=== PATIENT | female | born 1975 | race Caucasian/White ===

== ENCOUNTER 2020-01-21 11:47 | Emergency (ER) | payer MEDICAID ==
--- NOTE | 2020-01-21 12:07 | EDM.PDOC ---
ED HPI GENERAL MEDICAL PROBLEM - General Chief Complaint: Lower Extremity Injury/Pain Stated Complaint: R FOOT PAIN/POST SURGERY Time Seen by Provider: 01/21/20 12:07 Source of Information: Reports: Patient History Limitations: Reports: No Limitations - History of Present Illness INITIAL COMMENTS - FREE TEXT/NARRATIVE: 44-year-old female attends the ED this morning due to increased pain in her right medial foot. 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 She has had 7 separate surgeries on her left foot and this is the first surgery on her right foot. This was done December 12 in [place] or [facility]. She is here visiting at present. She states the pain has increased dramatically in the last few days for unknown reason. No purulent drainage from the surgical wounds. She currently does not have any pain medication with her to help control the pain. Onset: Gradual Onset Date: 01/18/20 Duration: Day(s):, Getting Worse Location: Reports: Lower Extremity, Right (Pain right medial foot at site of most recent surgery) Quality: Reports: Ache Severity: Moderate Improves with: Reports: Rest Worsens with: Reports: Movement Context: Reports: Other (Had surgical pinning of bones in her foot due to degenerative disease in her feet. 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 She has had 7 previous surgeries on her left foot.). 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 She has had 7 separate surgeries on her left foot basically to fuse the bones together to stop pain. 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 This was done in [place] or [facility].) Review of Systems - Review of Systems Review Of Systems: See Below Constitutional: Reports: No Symptoms Eyes: Reports: No Symptoms Ears: Reports: No Symptoms Nose: Reports: No Symptoms Mouth/Throat: Reports: No Symptoms Respiratory: Reports: No Symptoms Cardiovascular: Reports: No Symptoms GI/Abdominal: Reports: No Symptoms Genitourinary: Reports: Other (Urinary frequency) Musculoskeletal: Reports: Foot Pain (Knees hips back neck and shoulders at times. Currently having quite a bit of pain in her right foot at most recent surgical site medial foot), Joint Pain Skin: Reports: No Symptoms Neurological: Reports: No Symptoms Psychiatric: Reports: No Symptoms ED EXAM, GENERAL - Physical Exam Exam: See Below Exam Limited By: No Limitations General Appearance: Alert, WD/WN, No Apparent Distress, Other (Temperature is 35.8. Pulse is 97 and sinus respiratory is 19 with O2 sats of 97% room air BP 150/95) Extremities: Other (Examination was limited to her left foot which does not indeed show multiple surgical scars. On the right foot she has a screw puncture wound on the lateral aspect of the distal foot likely through the fifth metatarsal. There is a second surgical wound medial aspect of the midfoot at pin position. The wounds are are healing satisfactorily without any signs of infection.) Neurological: Alert, Oriented ( The surgical site is quite tender to touch.), CN II-XII Intact, Normal Cognition Psychiatric: Normal Affect, Normal Mood Skin Exam: Warm, Dry, Intact, Normal Color, No Rash Course - Vital Signs Last Recorded V/S: Last Vital Signs Temp 35.8 C L 01/21/20 11:56 Pulse 97 01/21/20 11:56 Resp 19 01/21/20 11:56 BP 150/95 H 01/21/20 11:56 Pulse Ox 97 01/21/20 11:56 - Orders/Labs/Meds Orders: Active Orders 24 hr Category Date Time Status Foot 2V Rt [CR] Stat Exams 01/21/20 12:11 Taken - Radiology Interpretation Free Text/Narrative:: 44-year-old female presents to the ED for evaluation of right foot pain. She indicates that she has some form of degenerative bone disease and has had to have multiple surgeries on her left foot I believe 7 different surgeries. She underwent surgery with a stable fixation and screw fixation to the medial aspect of her right foot December 12 out in [place] or [facility]. She is still nonweightbearing crutch walking. For whatever reason she is having increased pain in her right foot since she is out here visiting and does not have any pain medication with her. She does have surgical wounds both lateral and medial aspect of the foot. Plan I am going to have x-rays of the foot carried out to make sure there is no problems with position of the hardware or loosening or signs of infection. - Re-Assessments/Exams Free Text/Narrative Re-Assessment/Exam: 01/21/20 12:26 surgical fixation of the navicular bone to the talus reveals that the hardware is intact with no loosening and no signs of infection. Patient was so advised. Her bones are showing signs of osteopenia but she is not able to walk on it for at least 3 months postop. Did refill her prescription for Percocet tablets to be used 1 tablet every 4-6 hours necessary for pain relief x20 tablets. Departure - Departure Time of Disposition: 12:25 Disposition: Home, Self-Care 01 Condition: Fair Clinical Impression: Encounter for pain management - Discharge Information *PRESCRIPTION DRUG MONITORING PROGRAM REVIEWED*: Not Applicable *COPY OF PRESCRIPTION DRUG MONITORING REPORT IN PATIENT YARIEL: Not Applicable Prescriptions: oxyCODONE HCl/Acetaminophen [Percocet 10-325 mg Tablet] 1 each PO Q6H PRN #20 tablet PRN Reason: Orthopedic surgical wound Referrals: PCP,Not In Area [Primary Care Provider] - Forms: ED Department Discharge Additional Instructions: Evaluation in the emergency room today in regards to increased pain at recent orthopedic surgical site right foot. It is now been 6 weeks since you had surgery to your right foot for degenerative bone disease and requirement of pinning for ankylosis. X-rays of the foot reveal that the hardware is in satisfactory position with no sign of loosening or infection surrounding the pins. Unclear reason for the foot to be hurting worse as of late. Treatment will be Percocet tabs 10/325 mg 1 tablet every 6 hours as necessary for pain relief until you can get back to home in [place] or [facility]. Sepsis Event Note (ED) - Evaluation Sepsis Screening Result: No Definite Risk - Focused Exam Vital Signs: Vital Signs Temp Pulse Resp BP Pulse Ox 01/21/20 11:56 35.8 C L 97 19 150/95 H 97 - My Orders Last 24 Hours: My Active Orders 01/21/20 12:11 Foot 2V Rt [CR] Stat - Assessment/Plan Last 24 Hours: My Active Orders 01/21/20 12:11 Foot 2V Rt [CR] Stat
--- NOTE | 2020-02-21 11:17 | CR ---
PROCEDURE INFORMATION: Exam: XR Right Foot Exam date and time: 01/21/2020 11:59 AM Age: 44 years old Clinical indication: Pain; Foot; Right; Prior surgery; Surgery date: 1-6 months; Surgery type: Surgical pinning 2019 TECHNIQUE: Imaging protocol: XR Right foot. Views: 1 or 2 views. COMPARISON: No relevant prior studies available. FINDINGS: Bones/joints: No acute fracture. Medial hindfoot surgical arthrodesis involving talus and navicular. The navicular is sclerotic and deformed. Lateral cuneiform is very poorly viewed, possibly previously removed. Prominent hindfoot dorsal degenerative spurring. Irregular intraosseous lucency in central calcaneus spanning up to 2 cm may represent an intraosseous lipoma. Soft tissues: Diffuse soft tissue swelling. No soft tissue mass or gas collection. IMPRESSION: 1. Surgical change in degenerative spurring. No acute abnormality. 2. 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 Thank you for allowing us to participate in the care of your patient. Dictated and Authenticated by: Everardo Watson MD 02/21/2020 7:23 AM Central Time ([place] & [place]) DANIELLE
== END 2020-01-21 12:42 | disposition home or self-care (01) ==
LOC: JD.ED 11:47
DX: M79.671 Pain in right foot (principal); Z88.1 Allergy status to other antibiotic agents; Z88.5 Allergy status to narcotic agent
CPT/HCPCS: 73620-26-RT; 73620-RT; 99283

== ENCOUNTER 2020-08-06 17:27 | Emergency (ER) | payer OTHER, MEDICARE, MEDICAID ==
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
[2020-08-06] MEDS ORDERED: fentaNYL 100 MCG/2 ML SDV IVPUSH ONE ×2 (17:41→18:29)
[2020-08-06] MEDS ORDERED: Lactated Ringers 1,000 ML IV ONE (17:41)
[2020-08-06] MEDS ORDERED: Sodium Chloride 0.9% 10 ML Syringe FLUSH ONE (18:03)
[2020-08-06] MEDS ORDERED: Iopamidol 612 MG/ML 50 ML SDV IVPUSH ONE (18:03)
[2020-08-06] MEDS ORDERED: Iopamidol 612 MG/ML 100 ML Bottle IVPUSH ONE (18:03)
[2020-08-06] MEDS ORDERED: LORazepam 2 MG/ML SDV IVPUSH STA (18:46)
[2020-08-06] MEDS ORDERED: HYDROmorphone 0.5 MG/0.5 ML Syringe IVPUSH ONE (20:08)
--- NOTE | 2020-08-07 11:36 | CT ---
CT chest Technique: Multiple axial sections were obtained from above the lung apices inferiorly through the chest. Intravenous contrast was utilized. Reconstructed coronal and sagittal images were obtained. Comparison: No prior chest imaging is available. Findings: Slight soft tissue density is noted within the upper left medial chest compatible with minimal body wall contusion within the subcutaneous fat. Thoracic aorta shows no aneurysm. No retroperitoneal adenopathy is seen. No mediastinal hematoma is seen. No axillary adenopathy is seen. Lungs are clear with no acute parenchymal change. No pleural effusions are seen. No discrete pneumothorax is appreciated. Bone window settings were reviewed which show slight degenerative spurring within the spine. No definite acute osseous abnormality is appreciated. Impression: 1. Small amount of soft tissue contusion within the upper anterior and medial left chest wall. 2. Nothing acute is otherwise seen on CT study of the chest. Diagnostic code #2 I agree with preliminary report from [facility], finalized on 08/07/19, 8:24 PM CDT, code 1 CT abdomen and pelvis Technique: Multiple axial sections were obtained from above the dome of the diaphragm inferiorly through the pubic symphysis. Intravenous contrast was utilized. No oral contrast has been given. Delayed images were also obtained through the bladder. Reconstructed coronal and sagittal images were also obtained. Comparison: No prior abdominal imaging is available. Findings: Increased density is seen within the posterior right fat slightly above the renal pelvis. Slight increased density is noted within several locations within the lateral abdominal wall at the level of the mid pelvis. These are compatible with fat containing soft tissue hematomas. Liver shows no focal abnormality. Spleen size is normal. Adrenal glands show no nodule. Pancreas shows no discrete abnormality. Surgical clips are seen for prior cholecystectomy. Kidneys show symmetric contrast enhancement without hydronephrosis. Very small cyst is felt to be present within the mid to lower right kidney measuring about 4 mm. No additional renal abnormality is appreciated. Abdominal aorta shows aphthous chronic change which continues into the iliac vessels. No aneurysm is seen. No retroperitoneal adenopathy or mesenteric abnormalities are seen. No pelvic mass or adenopathy is seen. Minimal fat-containing inguinal hernia is noted. Slight fat is noted within portions of the right colon and transverse colon. Appendix is not visualized with certainty. Minimal diverticuli are seen with no findings of diverticulitis. Bone window settings were reviewed which show diffuse disc space narrowing at L5-S1 with surrounding sclerosis and vacuum phenomena. No acute osseous abnormality is seen. Impression: 1. Scattered areas of subcutaneous body wall contusions. 2. Slight fat within the right colon and transverse colon. Please correlate if patient has history of chronic colitis. 3. Other findings as noted above. No acute intra-abdominal abnormality is appreciated. Diagnostic code #2 I agree with preliminary report from [facility], finalized on 08/06/20, 8:24 PM CDT, code 1
== END 2020-08-06 20:40 ==
LOC: JD.ED 17:27
DX: S20.219A Contusion of unspecified front wall of thorax, initial encounter (principal); Z88.6 Allergy status to analgesic agent; Z88.8 Allergy status to other drugs, medicaments and biological substances; V89.2XXA Person injured in unspecified motor-vehicle accident, traffic, initial encounter; Y92.410 Unspecified street and highway as the place of occurrence of the external cause
CPT/HCPCS: 36415; 71260; 74177; 80053; 82150; 85025; 96374; 96375; 96376; 99285; J1170; J2060; J3010; J7120; Q9967; 99284

== ENCOUNTER 2021-06-03 05:49 | Emergency (ER) | payer MEDICARE, MEDICAID ==
[2021-06-03] MEDS ORDERED: Sodium Chloride 0.9% 10 ML Syringe FLUSH PRN (06:09)
[2021-06-03] MEDS ORDERED: cefTRIAXone 1 GM in Sodium Chloride 0.9% 100 ML IV ONE (06:11)
[2021-06-03] MEDS ORDERED: HYDROmorphone 1 MG/ML Syringe IVPUSH ONE (06:35)
== END 2021-06-03 08:10 | disposition home or self-care (01) ==
LOC: JD.ED 05:49
DX: L03.115 Cellulitis of right lower limb (principal); L03.116 Cellulitis of left lower limb; G89.4 Chronic pain syndrome; Z88.6 Allergy status to analgesic agent; Z88.8 Allergy status to other drugs, medicaments and biological substances; Z72.0 Tobacco use
CPT/HCPCS: 36415; 73620; 80053; 83605; 85025; 85652; 86140; 96365; 96375; 99284; J0696; J1170

== ENCOUNTER 2021-07-10 11:03 | Emergency (ER) | payer MEDICARE, MEDICAID ==
[2021-07-10] MEDS ORDERED: Sodium Chloride 0.9% 10 ML Syringe FLUSH PRN ×2 (11:40→13:06)
[2021-07-10] MEDS ORDERED: Iopamidol 755 Mg/ML 100 ML Bottle IVPUSH ONE (13:06)
== END 2021-07-10 14:55 | disposition home or self-care (01) ==
LOC: JD.ED 11:03
DX: R60.0 Localized edema (principal); R79.89 Other specified abnormal findings of blood chemistry; Z88.6 Allergy status to analgesic agent; Z88.8 Allergy status to other drugs, medicaments and biological substances; Z72.0 Tobacco use
CPT/HCPCS: 36415; 71045; 71275; 80053; 83735; 83880; 84484; 85025; 85379; 85610; 85730; 93005; 93970; 99284; Q9967; 93010; 99283

== ENCOUNTER 2021-11-30 18:02 | Emergency (ER) | payer MEDICARE, MEDICAID ==
[2021-11-30] MEDS ORDERED: HYDROmorphone 0.5 MG/0.5 ML Syringe IVPUSH ONE (18:24)
[2021-11-30] MEDS ORDERED: HYDROmorphone 1 MG/ML Syringe IVPUSH STA (19:45)
[2021-11-30] MEDS ORDERED: Morphine 4 MG/ML Syringe IVPUSH ONE (20:33)
== END 2021-11-30 22:45 | disposition home or self-care (01) ==
LOC: JD.ED 18:02
DX: S92.312A Displaced fracture of first metatarsal bone, left foot, initial encounter for closed fracture (principal); S92.322A Displaced fracture of second metatarsal bone, left foot, initial encounter for closed fracture; S92.332A Displaced fracture of third metatarsal bone, left foot, initial encounter for closed fracture; S92.342A Displaced fracture of fourth metatarsal bone, left foot, initial encounter for closed fracture; S92.352A Displaced fracture of fifth metatarsal bone, left foot, initial encounter for closed fracture; F17.210 Nicotine dependence, cigarettes, uncomplicated; Z88.8 Allergy status to other drugs, medicaments and biological substances; X50.1XXA Overexertion from prolonged static or awkward postures, initial encounter
CPT/HCPCS: 73610; 73630; 96374; 96375; 96376; 99283; J1170; J2270

== ENCOUNTER 2021-12-04 17:31 | Emergency (ER) | payer MEDICARE, MEDICAID ==
[2021-12-04] MEDS ORDERED: HYDROmorphone 1 MG/ML Syringe IM ONE (18:26)
== END 2021-12-04 20:03 | disposition home or self-care (01) ==
LOC: JD.ED 17:31
DX: M79.672 Pain in left foot (principal); S92.302D Fracture of unspecified metatarsal bone(s), left foot, subsequent encounter for fracture with routine healing; Z88.1 Allergy status to other antibiotic agents; Z90.49 Acquired absence of other specified parts of digestive tract; Z90.710 Acquired absence of both cervix and uterus
CPT/HCPCS: 29515; 96372; 99283; J1170

== ENCOUNTER 2021-12-28 13:21 | Emergency (ER) | payer MEDICARE, MEDICAID ==
[2021-12-28] MEDS ORDERED: Acetaminophen/HYDROcodone 325-5 MG Tab PO ONE (16:12)
== END 2021-12-28 17:40 | disposition home or self-care (01) ==
LOC: JD.ED 13:21
DX: F11.13 Opioid abuse with withdrawal (principal); Z88.1 Allergy status to other antibiotic agents; Z79.899 Other long term (current) drug therapy; Z90.49 Acquired absence of other specified parts of digestive tract; Z90.710 Acquired absence of both cervix and uterus
CPT/HCPCS: 99283; A9270; 99282